=== PATIENT | female | born 1980 | race Hispanic/Latino ===

== ENCOUNTER 2022-12-03 20:10 | Emergency (ER) | payer OTHER ==
[~2022-12-03] VITALS: Ht 172.7 cm; Wt 71.7 kg
[2022-12-03 20:39] VITALS: BP 127/81
[2022-12-03] MEDS ORDERED: PREDNISONE 20 MG TABLET PO ONE (21:00)
[2022-12-03] MEDS ORDERED: PRED20TA3 PO (21:31)
[2022-12-03] MEDS ORDERED: NIRM1TAB PO (21:31)
== END 2022-12-03 21:50 | disposition home or self-care (01) ==
LOC: EDH 20:10
DX: U07.1 COVID-19 (principal); J11.1 Influenza due to unidentified influenza virus with other respiratory manifestations
CPT/HCPCS: 99284; 71045; 87635; 87880; 87804 ×2; C9803